=== PATIENT | female | born 1935 | race Caucasian/White ===

== ENCOUNTER → 2016-09-23 | Outpatient (CLI) | payer MEDICARE ==
--- NOTE | 2016-09-23 13:00 | RAD ---
Exam: PA chest and left rib radiographs, 3 images History: Left rib pain after fall 6 weeks ago. Comparison: 08/02/2014. Findings: Cardiomediastinal silhouette is within normal limits for size. Bilateral lung ace are free of focal infiltrate. No pleural effusion is seen. Aortic atherosclerosis is seen. Mildly displaced left posterolateral third, fourth, and fifth rib fractures are identified. Impression: 1. No acute cardiopulmonary process. 2. Subacute left third through fifth rib fractures.
== END | disposition home or self-care (01) ==
LOC: DXRAD 10:39
PROVIDERS: ATTEND Family Medicine
DX: S22.32XD Fracture of one rib, left side, subsequent encounter for fracture with routine healing (principal); X58.XXXD Exposure to other specified factors, subsequent encounter
CPT/HCPCS: 71101

== ENCOUNTER → 2016-10-14 | Outpatient (CLI) | payer MEDICARE ==
--- NOTE | 2016-10-14 13:11 | RAD ---
Bone densitometry scan, 10/14/2016: History: Postmenopausal screening, fracture The lumbar spine and right hip were examined utilizing a DEXA technique. The bone mineral density in the lumbar spine as measured from the L1-L4 levels is 1.03 g/sq cm. This yields a T score of -1.2 compatible with osteopenia. The lumbar spine T score on the previous study of 02/24/2014 was -1.3. The total T score at the right hip is -0.6 which is in the normal range. The right hip T score the previous study was -0.7. 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
== END | disposition home or self-care (01) ==
LOC: DXRAD 12:36
PROVIDERS: ATTEND Nurse Practitioner Family
DX: M85.88 Other specified disorders of bone density and structure, other site (principal); Z78.0 Asymptomatic menopausal state
CPT/HCPCS: 77080

== ENCOUNTER → 2016-12-31 | Outpatient (CLI) | payer MEDICARE ==
--- NOTE | 2016-12-31 13:30 | RAD ---
Left RIBS with chest, 12/31/2016: History: Fall, pain The bony structures are demineralized. Comparison is made to a study from 09/23/2016. There is now callus formation at the sites of the left third, fourth and fifth rib fractures. No new rib fracture is identified. There are mild scattered degenerative changes in the spine. There is no evidence of underlying pneumothorax, hemothorax or pulmonary infiltrate. There is bilateral apical scarring. The heart size is normal. There is aortic atherosclerosis. IMPRESSION: 1. Demineralization. 2. Healing fractures of the left third through fifth ribs. 3. No new fracture is identified.
== END | disposition home or self-care (01) ==
LOC: DXRADRC 12:56
PROVIDERS: ATTEND Family Medicine
DX: S22.42XD Multiple fractures of ribs, left side, subsequent encounter for fracture with routine healing (principal); W19.XXXD Unspecified fall, subsequent encounter
CPT/HCPCS: 71101